=== PATIENT | male | born 1995 ===

== ENCOUNTER 2017-08-25 04:21 | Emergency (ER) | payer BC ==
[2017-08-25] MEDS ORDERED: Lidocaine 1% Inj (20ml) ONE (05:26)
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
[2017-08-25 10:14] VITALS: TEMP 98.1
[2017-08-25 10:46] VITALS: BP 137/79; PULSE 99; RESP 13
[2017-08-27 11:38] VITALS: O2SAT 98
== END 2017-08-25 10:33 ==
LOC: H.ER 04:21
DX: S01.81XA Laceration without foreign body of other part of head, initial encounter (principal); Y04.0XXA Assault by unarmed brawl or fight, initial encounter; F10.10 Alcohol abuse, uncomplicated
CPT/HCPCS: 12011; 70450; 70486; 99285; G0480